=== PATIENT | female | born 1955 | race Caucasian/White ===

== ENCOUNTER 2023-05-19 14:13 | Observation (INO) | payer BC, SELFPAY ==
[2023-05-19] VITALS (14 sets, daily range): BP systolic 129–193; BP diastolic 61–83; PULSE 68–82; RESP 18–20; TEMP 36.2–36.9; O2SAT 95–98; BMI 25.7; BMI 24.5
--- NOTE | 2023-05-19 14:44 | DI.RAD.S_ITS ---
PROCEDURE: XR RIBS LT MIN 3V W CXR1V INDICATIONS: fall/rib pain TECHNIQUE: 3 views of the left ribs were acquired, along with a single view chest. COMPARISON: None. FINDINGS: Surgical changes and devices: None. Bones and chest wall: Mildly displaced left lateral 8th, 9th and 10th rib fractures. No suspicious bony lesions. Overlying soft tissues appear unremarkable. Lungs and pleura: No pleural effusions or pneumothorax. Mild bibasilar atelectasis. Mediastinum: Mediastinal contours appear normal. Heart size is normal. IMPRESSION: Left rib fractures. Dictated by: Mary Quiroz M.D. on 05/19/2023 at 15:24 Approved by: Mary Quiroz M.D. on 05/19/2023 at 15:25
--- NOTE | 2023-05-19 16:44 | DI.CT.S_ITS ---
PROCEDURE: CT CHEST ABD PEL W CON INDICATIONS: fell into a boat/left flank pain TECHNIQUE: After the administration of intravenous contrast, 5 mm thick sections acquired from the lung apices to the symphysis. 2.5 mm thick coronal and sagittal reformats were acquired. Additional 7 mm thick coronal maximum intensity projection (MIP) reformats acquired through the lungs. Optional 10-minute delayed imaging may be performed from the kidneys to the bladder. For radiation dose reduction, the following was used: automated exposure control, adjustment of mA and/or kV according to patient size. COMPARISON: None. FINDINGS: Image quality: Excellent. CHEST: Lungs: Ground-glass opacity at the left lung base. No focal contusions or consolidations. Trace left pleural effusion. No pneumothorax. Mediastinum: No mediastinal hematomas. Heart size is normal. No pericardial effusion. Thoracic aorta and pulmonary arteries demonstrate normal size and enhancement. No mediastinal or hilar adenopathy. Esophagus is normal in caliber. Small hiatal hernia. Chest wall: Mildly displaced left lateral rib fractures 9, 10, and 11 posteriorly. There is intercostal soft tissue thickening, a few foci of extrapleural emphysema and subcutaneous contusion overlying these areas. ABDOMEN: Solid organs: The spleen and left kidney are intact. Liver, right kidney, adrenal glands, pancreas, gallbladder, and biliary tree are normal. Peritoneum and bowel: No free fluid or air. Unenhanced bowel loops demonstrate normal wall thickness and caliber. Appendix is absent. The stomach is decompressed. No retroperitoneal hematoma. Nodes and vessels: No retroperitoneal or mesenteric adenopathy. Aorta and inferior vena cava are normal in size and enhancement. Miscellaneous: No ventral hernias. PELVIS: Genitourinary: Bladder wall thickness is normal. Anteverted uterus appears age-appropriate. There is an exophytic right myometrial fibroid. Ovaries are not well seen by CT. Miscellaneous: No inguinal hernias or adenopathy. No pelvic hematoma. Bones: Pelvic ring and hip joints appear intact. No vertebral compression fractures. IMPRESSION: 1. Acute left-sided rib fractures with trace left pleural effusion, extrapleural emphysema, underlying ground-glass opacities suggesting splinting, and overlying subcutaneous contusion. 2. No pneumothorax. 3. No CT evidence of solid organ injury. Dictated by: Frieda Neri M.D. on 05/19/2023 at 17:31 Approved by: Frieda Neri M.D. on 05/19/2023 at 17:39
[2023-05-19] MEDS: MORPHINE 4 MG/ML INJ IV (17:05)
[2023-05-19 17:10] LABS: Add Manual Diff / Slide Review NO; Basophils Absolute Auto 100 /uL (0-100); Basophils Percent Auto 0.4 % (0-2); Eosinophils Absolute Auto 100 /uL (0-450); Eosinophils Percent Auto 0.5 % (2-4); Hematocrit 41.5 % (36-46); Hemoglobin 13.8 g/dL (12.0-16.0); Lymphocytes Absolute Auto 1500 /uL (1100-4500); Lymphocytes Percent Auto 9.8 % (25-40); Mean Corpuscular HGB Conc 33.3 % (30-36); Mean Corpuscular Hemoglobin 29.8 PG (26-34); Mean Corpuscular Volume 89.6 fL (80-100); Monocytes Absolute Auto 1000 /uL (0-900); Monocytes Percent Auto 6.3 % (3-14); Neutrophils Absolute Auto 13000 /uL (1500-7000); Platelet Count 328 X10^3/uL (150-400); Red Blood Cell Count 4.64 X10^6/uL (4.0-5.2); Red Cell Distribution Width 14.2 % (11.6-14.8); White Blood Cell Count 15.7 X10^3/uL (4.5-11.0)
[2023-05-19 17:11] LABS: Alanine Aminotransferase 41 IU/L (<35); Albumin 4.8 g/dL (3.5-5.0); Albumin Globulin Ratio 1.5 (1.0-2.8); Alkaline Phosphatase 78 U/L (38-126); Aspartate Aminotransferase 39 IU/L (14-36); BUN Creatinine Ratio 28.1 (6-22); Blood Urea Nitrogen 18 mg/dL (7-17); Calcium 9.6 mg/dL (8.4-10.2); Carbon Dioxide 23 mmol/L (22-32); Chloride 103 mmol/L (98-107); Estimated Glomerular Filt Rate > 60 mL/min (>60); Globulin 3.3 g/dL (1.7-4.1); Glucose 113 mg/dL (80-110); HEMOLYSIS < 15 (0-50); Potassium 3.7 mmol/L (3.4-5.1); Sodium 137 mmol/L (137-145); Total Protein 8.1 g/dL (6.3-8.2)
--- NOTE | 2023-05-19 19:14 | ED_ITS ---
HPI - Back Pain/Injury General Chief Complaint: Back Pain/Injury Stated Complaint: fell LT lat Ribs Time Seen by Provider: 05/19/23 18:07 Source: patient History of Present Illness HPI Narrative: 68-year-old woman currently visiting, on a boat in [place] with medical problems including anxiety and depression presents after falling. She states that she was stepping onto the boat did not look down and recognize 1 of the houses was open. She stepped into the [place] fell with the majority of her weight landing on her left lower ribs and flank. Significant pain but was able to get out of the hat. 911 was called. She complains of rib and flank pain, she does not complain of severe dyspnea notes that she injured her 4th finger left side and reports she did not hit her head. She is not on any anticoagulants. Related Data Allergies Allergy/AdvReac Type Severity Reaction Status Date / Time scopolamine Allergy Rash Verified 05/19/23 14:44 Review of Systems Review of Systems Narrative: Pertinent positive and negative findings as per HPI Patient History Medical History (Updated 05/19/23 @ 20:35 by Maryjane Willis MD) Depression with anxiety Social History Smoking Status: Never smoker Smoking Status: Never smoker alcohol intake frequency: a few times a week Substance Use Type: does not use Exam Initial Vital Signs Initial Vital Signs: Vital Signs Temperature 98.4 F 05/19/23 14:38 Pulse Rate 82 05/19/23 14:38 Respiratory Rate 20 05/19/23 14:38 Blood Pressure 181/80 H 05/19/23 14:38 Pulse Oximetry 97 05/19/23 14:38 Oxygen Delivery Method Room Air 05/19/23 14:38 General: Healthy appearing, anxious and an obvious pain but able to give a complete and coherent history. Well-nourished well-developed HEENT: Moist mucous membranes, normal sclera with reactive pupils, Neck: No cervical spine tenderness, supple Respiratory: Lungs are clear to auscultation, no wheezing no rales no rhonchi. There is some mild splinting in the left posterior area Full and symmetrical air movement Chest: She has moderate amount of ecchymosis over the left posterior ribs and upper left flank. There is a minor amount of palpable subcutaneous air associated with this hematoma, she has significant point tenderness in this area as well Cardiac: Regular rate and rhythm no murmurs no bruits Abdomen: Soft, nontender, good bowel tones, no flank pain Skin: Warm and dry, no rashes Neurologic: Grossly neurologically intact with no obvious asymmetries or abnormalities Extremities: Left 4th finger has some minor bruising to the PIP joint. She has removed her wedding ring in light of the slight amount of swelling associated with this. He is otherwise neurovascularly intact in extremities are Well perfused Psych: Cooperative, appropriate insight and affect Course Orders Ordered: ED Orders 05/19/23 14:44 XR ribs LT min 3V w CXR1V Stat 05/19/23 16:44 CT chest abd pel w con Stat 05/19/23 16:52 CMP [Comprehensive Metabolic Panel] Stat Complete Blood Count AUTO DIFF Stat Escitalopram Oxalate (Escitalopram 10 Mg Tablet) 5 mg PO BEDTIME ANGEL Hydromorphone HCl (Hydromorphone 0.5 Mg Inj) 0.5 mg IV Q15MIN PRN PRN Reason: Pain, Sodium Chloride (Normal Saline 0.9%) 1,000 mls @ 1,000 mls/hr IV BOLUS ONE Stop: 05/19/23 20:30 Last Admin: 05/19/23 19:53 Dose: 1,000 mls/hr Documented By: RODERICK Discontinued Medications Ketorolac Tromethamine (Ketorolac 30 Mg/Ml Vial) 15 mg IV NOW ONE Stop: 05/19/23 19:32 Last Admin: 05/19/23 19:53 Dose: 15 mg Documented By: RODERICK Morphine Sulfate (Morphine 4 Mg/Ml Inj) 4 mg IV NOW ONE Stop: 05/19/23 17:02 Last Admin: 05/19/23 17:05 Dose: 4 mg Documented By: BG Ondansetron HCl (Ondansetron 4 Mg/2 Ml Inj) 4 mg IV NOW ONE Stop: 05/19/23 19:32 Vital Signs Vital signs: Vital Signs - 8 hr 05/19/23 14:38 Temperature 98.4 F Pulse Rate 82 Respiratory Rate 20 Blood Pressure 181/80 H Pulse Oximetry 97 Oxygen Delivery Method Room Air MDM - Back Pain/Injury Lab Data 05/19/23 16:52 05/19/23 16:52 Labs: Lab Results 05/19/23 05/19/23 Range/Units 16:52 16:52 WBC 15.7 H (4.5-11.0) X10^3/uL RBC 4.64 (4.0-5.2) X10^6/uL Hgb 13.8 (12.0-16.0) g/dL Hct 41.5 (36-46) % MCV 89.6 (80-100) fL MCH 29.8 (26-34) PG MCHC 33.3 (30-36) % RDW 14.2 (11.6-14.8) % Plt Count 328 (150-400) X10^3/uL Neut % (Auto) 83.0 H (50-75) % Lymph % (Auto) 9.8 L (25-40) % [place] % (Auto) 6.3 (3-14) % Eos % (Auto) 0.5 L (2-4) % Baso % (Auto) 0.4 (0-2) % Neut # (Auto) 91784 H (1262-7395) /uL Lymph # (Auto) 1500 (4150-2016) /uL [place] # (Auto) 1000 H (0-900) /uL Eos # (Auto) 100 (0-450) /uL Baso # (Auto) 100 (0-100) /uL Sodium 137 (137-145) mmol/L Potassium 3.7 (3.4-5.1) mmol/L Chloride 103 (98-107) mmol/L Carbon Dioxide 23 (22-32) mmol/L BUN 18 H (7-17) mg/dL Creatinine 0.64 (0.52-1.04) mg/dL Estimated GFR > 60 (>60) mL/min BUN/Creatinine Ratio 28.1 H (6-22) Glucose 113 H (80-110) mg/dL Calcium 9.6 (8.4-10.2) mg/dL Total Bilirubin 1.0 (0.2-1.3) mg/dL AST 39 H (14-36) IU/L ALT 41 H (<35) IU/L Alkaline Phosphatase 78 (38-126) U/L Total Protein 8.1 (6.3-8.2) g/dL Albumin 4.8 (3.5-5.0) g/dL Globulin 3.3 (1.7-4.1) g/dL Albumin/Globulin Ratio 1.5 (1.0-2.8) Urine Dip Bedside Urine Glucose Negative Bedside Urine Bilirubin - Negative Bedside Urine Ketone - Negative Urine Specific [place] 1.030 Bedside Urine Occult Blood - Negative Bedside Urine pH 6.0 Bedside Urine Protein - Negative Bedside Urine Urobilinogen - Negative Bedside Urine Nitrite - Negative Bedside Urine Leukocytes - Negative Esterase MDM Narrative Medical decision making narrative: CC: Fall into an open kelly on a boat Complicating co-morbidities: Anxiety and depression Data collected from: patient, Social determinants of health that may influence the patients condition: 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 Mild amount of subcutaneous air appreciated in the lower left rib area. There is no subcutaneous air in the neck or anterior portion of the chest. She does have full and symmetrical rise of both sides of her chest. Heart is unremarkable. Aside from the minor bruising to the left hand she has no other injuries Lab Test results independently reviewed as above. Pertinent findings: CBC shows mild leukocytosis at 15.7, left shift at 83% neutrophils no anemia Metabolic panel shows mild elevation to AST and ALT at 39 and 41 respectively Independently reviewed EKG as above Imaging studies independently reviewed: CT of the chest abdomen pelvis is significant for displaced lateral rib fractures 910 and 11 posteriorly., subcutaneous contusion overlying these areas with some mild extrapleural emphysema. There is no pneumothorax, no pneumomediastinum no pericardial effusion she does have a trace left pleural effusion. Solid organs are intact. Abdomen and pelvis are benign. Consultations: Dr. Victoria, general surgery Treatments: IV Toradol for pain control Discussion: 68-year-old woman with 3 left rib fractures moderate contusion minor amount of subcutaneous air without obvious pneumothorax and no pneumom ediastinum appreciated. Concerned that there is the potential for developing pneumothorax including tension pneumothorax, pulmonary contusion, increasing respiratory difficulty and pain control will need to be addressed as well as adequate pulmonary toilet. To this end care is reviewed with Dr. Victoria, general surgeon patient will be admitted for further evaluation for her posterior rib fractures and hematoma. At this point there is no evidence of solid organ injury or intra-abdominal abnormalities. Discharge Plan Departure Patient Disposition: Admitted as Observation Clinical Impression: Multiple fractures of ribs of left side, Hematoma of flank, Accidental fall into hole or opening in surface Admit Date/Time: 05/19/23 19:53 Admit Provider: Checo Victoria
[2023-05-19] MEDS: SODIUM CHLORIDE 0.9% 1,000 ML 1000 ML IV (19:53)
[2023-05-19] MEDS: KETOROLAC 30 MG/ML VIAL 15 MG IV (19:53)
--- NOTE | 2023-05-19 20:05 | PM.HP.1 ---
History of Present Illness History of Present Illness Date Patient Seen: 05/19/23 Time Patient Seen: 20:05 Chief complaint: fell LT lat Ribs Narrative: Allison is a 68-year-old woman who fell today onto her left back on a boat. She did not lose consciousness. A CT scan of the chest and abdomen and pelvis showed some left-sided rib fractures. There was no pneumothorax. There was a small hemothorax and trace subcutaneous emphysema just outside of the chest wall near the rib fractures. She reports pain with deep breathing [facility] Social History Smoking Status: Never smoker Meds Home Medications and Allergies Allergies Allergy/AdvReac Type Severity Reaction Status Date / Time scopolamine Allergy Rash Verified 05/19/23 14:44 Exam Vital Signs (past 8 hours): - 05/19/23 14:38 Temperature 98.4 F Pulse Rate 82 Respiratory Rate 20 Blood Pressure 181/80 H Pulse Oximetry 97 Oxygen Delivery Method Room Air Oxygen Delivery Method Room Air Narrative Exam Narrative: Normal respirations Left chest wall tenderness to palpation Abdomen is soft Objective Labs 05/19/23 16:52 05/19/23 16:52 Labs: Laboratory Results - last 24 hr 05/19/23 05/19/23 16:52 16:52 WBC 15.7 H RBC 4.64 Hgb 13.8 Hct 41.5 MCV 89.6 MCH 29.8 MCHC 33.3 RDW 14.2 Plt Count 328 Neut % (Auto) 83.0 H Lymph % (Auto) 9.8 L [place] % (Auto) 6.3 Eos % (Auto) 0.5 L Baso % (Auto) 0.4 Neut # (Auto) 54594 H Lymph # (Auto) 1500 [place] # (Auto) 1000 H Eos # (Auto) 100 Baso # (Auto) 100 Sodium 137 Potassium 3.7 Chloride 103 Carbon Dioxide 23 BUN 18 H Creatinine 0.64 Estimated GFR > 60 BUN/Creatinine Ratio 28.1 H Glucose 113 H Calcium 9.6 Total Bilirubin 1.0 AST 39 H ALT 41 H Alkaline Phosphatase 78 Total Protein 8.1 Albumin 4.8 Globulin 3.3 Albumin/Globulin Ratio 1.5 Assessment & Plan Assessment and plan (1) Fracture of rib of left side: Status: Acute Plan Admit for pain control and pulmonary hygiene
[2023-05-19] MEDS: ESCITALOPRAM 10 MG TABLET 5 MG PO (21:19)
[2023-05-19] MEDS: KETOROLAC 30 MG/ML VIAL IV (22:07)
[2023-05-19] MEDS: LACTATED RINGERS 1,000 ML 100 ML IV (22:15)
--- NOTE | 2023-05-19 22:39 | PC.NURSE ---
Pt. admitted to room 224, Oriented to her room, declined to have her bed alarm activated. States I will be okay, I want to go to the bathroom independently. Pain level 8/10 Toradol 30 mg. administered. Denies any dyspnea, no SOB noted, SPO2 in room air 97%. Will cont. plan of care & monitor.
--- NOTE | 2023-05-20 | DI.RAD.S_ITS ---
PROCEDURE: XR CHEST 2V INDICATIONS: Rib fracture- followup TECHNIQUE: 2 views of the chest were acquired. COMPARISON: [facility], CT, CT CHEST ABD PEL W CON, 05/19/2023, 16:55. FINDINGS: Surgical changes and devices: None. Lungs and pleura: Lungs are clear. No pleural effusions or pneumothorax. Mediastinum: Mediastinal contours are normal. Heart size is normal. Bones and chest wall: Left-sided rib fractures, better appreciated on prior CT. No suspicious bony abnormalities. Soft tissues appear unremarkable. IMPRESSION: Left-sided rib fractures are better appreciated on prior CT. No evidence of pneumothorax. Dictated by: Robbie Nunez M.D. on 05/20/2023 at 13:31 Approved by: Robbie Nunez M.D. on 05/20/2023 at 13:34
[2023-05-20] MEDS: HYDROCODONE/ACET 5/325 TABLET 1 TAB PO ×4 (00:04→13:37)
--- NOTE | 2023-05-20 03:30 | PC.NURSE ---
Pt. went down for 2 views chest X-ray & back to her room. C/O discomfort & insomnia, will admin. Vicodin 1 tab. . Will cont. POC & monitor.
[2023-05-20 04:00] VITALS: BP 114/40; PULSE 72; RESP 18; TEMP 36.3; O2SAT 97
[2023-05-20] MEDS: KETOROLAC 30 MG/ML VIAL IV ×2 (05:18→13:28)
[2023-05-20 08:00] VITALS: BP 142/59; PULSE 73; RESP 16; TEMP 36.3; O2SAT 95
--- NOTE | 2023-05-20 13:38 | CM.DANOTE ---
Discharge Planning/Care Management CM Discharge Assessment Start: 05/20/23 13:34 Freq: Status: Active Protocol: Document 05/20/23 13:34 LANDON (Rec: 05/20/23 13:38 LANDON [id number]) Discharge Planning Assessment Assigned Complaint Evaluation Supervisor CECILY Brand DPOA/Assigned Designee Name Nate Corrales, spouse Contact Information [phone] Advance Directives? No History Provided By Patient,Medical Record Prior Living Arrangements Other Comment Living on their boat currently Household Members spouse Type of transporation used prior to Drives own vehicle admit Independent with ADL's Yes Is patient alert and oriented? Yes Barriers to Discharge No Comment Patient eager to discharge the hospital, return to her boat with her spouse to assist as needed. Patient denies needs from this [employer], appreciative for the visit today. Discharge Plan Home Transportation Arrangement Spouse Referrals Initiated None needed
--- NOTE | 2023-05-20 19:37 | PC.NURSE ---
Discharge: MD Victoria called to check on pt. He was made aware she was having pain at the left shoulder and the lower lt rib cage, worse if she tried to go to high on [place]. Her x-ray is okay per and pt does want to go home. Pt also needs a work release for while she is sick. MD's office said they will write one or send one to her email. She opted to give the office her email. Reviewed d/c packet and understood Rx has been esent. Questions answered. pt d/c to home via auto with spouse.
== END 2023-05-20 15:39 | disposition home or self-care (01) ==
LOC: ED 18:07 → AC 19:53
PROVIDERS: Student in an Organized Health Care Education/Training Program; Admitting Provider Surgery; Emergency Provider Emergency Medicine; Referring Provider Emergency Medicine; Visit Provider Surgery
DX: S22.42XA Multiple fractures of ribs, left side, initial encounter for closed fracture (principal); W17.89XA Other fall from one level to another, initial encounter; Y92.814 Boat as the place of occurrence of the external cause; F41.9 Anxiety disorder, unspecified; F32.A Depression, unspecified
CPT/HCPCS: 36415; 71046; 71101; 71260; 74177; 80053; 81003; 85025; 96374; 96375; 96376; 99221; 99284; G0378; J1885; J2270